=== PATIENT | male | born 1960 | race Caucasian/White ===

== ENCOUNTER 2021-05-16 16:12 | Outpatient (CLI) | payer OTHER ==
[2021-05-17 23:45] LABS: SARS-CoV-2 PCR by NAA Not Detected (NotDetected)
== END 2021-05-16 16:13 | disposition home or self-care (01) ==
LOC: CSHLAB 16:12
PROVIDERS: ATTEND Internal Medicine Gastroenterology
DX: Z20.822 Contact with and (suspected) exposure to COVID-19 (principal); Z12.11 Encounter for screening for malignant neoplasm of colon
CPT/HCPCS: U0003; U0005

== ENCOUNTER 2021-10-29 12:09 | Day surgery (SDC) | payer OTHER ==
[2021-10-25 07:01] VITALS: BMI 27.3
[2021-10-29] MEDS ORDERED: Lidocaine 1% PF 5 ML VIAL ONE (12:38)
[2021-10-29] MEDS ORDERED: Sodium Bicarbonate 2.5 MEQ/5 ML VIAL ONE (12:38)
== END 2021-10-29 13:31 | disposition home or self-care (01) ==
LOC: CSHCT 12:09
PROVIDERS: ATTEND Internal Medicine Hematology & Oncology
PROC: 07DR3ZX Extraction of Iliac Bone Marrow, Percutaneous Approach, Diagnostic (ICD-10-PCS; principal; 2021-10-29)
DX: C90.00 Multiple myeloma not having achieved remission (principal); C00.0 Malignant neoplasm of external upper lip; C79.51 Secondary malignant neoplasm of bone
CPT/HCPCS: 38222; 85097; 88184; 88237; 88305; 88313